=== PATIENT | male | born 1965 | race Caucasian/White ===

== ENCOUNTER → 2019-07-17 14:58 | Outpatient (CLI) | payer BC, SELFPAY ==
[2019-07-17 15:22] LABS: Add Manual Diff / Slide Review NO; Basophils Absolute Auto 100 /uL (0-100); Basophils Percent Auto 0.9 % (0-2); Eosinophils Absolute Auto 100 /uL (0-450); Eosinophils Percent Auto 2.3 % (2-4); Hemoglobin 14.3 g/dL (13.5-17.5); Lymphocytes Absolute Auto 1300 /uL (1100-4500); Lymphocytes Percent Auto 23.1 % (25-40); Mean Corpuscular Hemoglobin 31.4 PG (26-34); Mean Corpuscular Volume 89.7 fL (80-100); Monocytes Absolute Auto 400 /uL (0-900); Monocytes Percent Auto 7.5 % (3-14); Neutrophils Absolute Auto 3600 /uL (1500-7000); Neutrophils Percent Auto 66.2 % (50-75); Platelet Count 185 X10^3/uL (150-400); Red Blood Cell Count 4.57 X10^6/uL (4.5-5.9); Red Cell Distribution Width 13.2 % (11.6-14.8); White Blood Cell Count 5.5 X10^3/uL (4.5-11.0)
[2019-07-17 15:56] LABS: Alanine Aminotransferase 27 IU/L (<50); Albumin 4.5 g/dL (3.5-5.0); Albumin Globulin Ratio 2.3 (1.0-2.8); Alkaline Phosphatase 62 U/L (38-126); Aspartate Aminotransferase 30 IU/L (17-59); Bilirubin Total 0.8 mg/dL (0.2-1.3); Blood Urea Nitrogen 16 mg/dL (9-20); Calcium 8.9 mg/dL (8.4-10.2); Carbon Dioxide 26 mmol/L (22-32); Chloride 105 mmol/L (98-107); Cholesterol 196 mg/dL (140-199); Estimated Glomerular Filt Rate > 60.0 mL/min (>60); Glucose 92 mg/dL (70-100); HDL Cholesterol 40 mg/dL (40-60); HEMOLYSIS < 15 (0-50); LDL Cholesterol Calculated 119 mg/dL (<100); Sodium 138 mmol/L (137-145); Total Protein 6.5 g/dL (6.3-8.2); Triglycerides 187 mg/dL (35-150)
[2019-07-17 16:26] LABS: TSH w/ Reflex to FT4 2.02 uIU/mL (0.47-4.68)
== END ==
PROVIDERS: PCP Family Medicine; Visit Provider Family Medicine
DX: Z00.00 Encounter for general adult medical examination without abnormal findings (principal); I10 Essential (primary) hypertension; Z13.6 Encounter for screening for cardiovascular disorders
CPT/HCPCS: 36415; 80053; 80061; 84443; 85025

== ENCOUNTER → 2020-07-16 09:58 | Outpatient (CLI) | payer BC, SELFPAY ==
--- NOTE | 2020-07-16 | DI.MRI.S_ITS ---
PROCEDURE: MR SHOULDER LT WO CON INDICATIONS: Impingement syndrome of left shoulder TECHNIQUE: Noncontrast oblique coronal T2 fast spin echo with fat saturation, oblique sagittal T1 spin echo and T2 fast spin echo with fat saturation, axial T1 spin echo and T2 fast spin echo with fat saturation through the shoulder. COMPARISON: None. FINDINGS: Image quality: Excellent. Rotator cuff: Infraspinatus tendinopathy and low-grade articular surface fraying. There is also supraspinatus tendinopathy with low-grade articular and bursal surface fraying. Teres minor appears intact. Mild subscapularis tendinopathy. Prominent fatty infiltration of the teres minor with mild atrophy. There is mild fatty infiltration of the infraspinatus muscle. Bones and bursae: No bone marrow contusions or fractures. Moderate to severe hypertrophic acromioclavicular joint degeneration. Acromion demonstrates conventional anatomy, without an os acromiale. Mild subacromial-subdeltoid bursitis. Capsule and soft tissues: Labrum: Ill-defined fraying of the superior labrum.. Long head of the biceps tendon intact. Inferior glenohumeral ligament thickening and mild T2 hyperintensity in keeping with low-grade sprain, age indeterminate. The rotator interval appears normal, without fibrosis. Coracohumeral ligament intact. IMPRESSION: Infraspinatus and supraspinatus tendinopathy Low-grade articular surface fraying of the infraspinatus tendon. Low-grade articular and bursal surface fraying of the supraspinatus tendon. No full-thickness defect identified Prominent fatty infiltration and mild atrophy of the teres minor, although no specific lesion identified in the quadrilateral space. Mild subacromial-subdeltoid bursitis. Ill-defined fraying of the superior labrum, probably age-appropriate Age-indeterminate sprain of the inferior glenohumeral ligament Dictated by: Oliverio Landon M.D. on 07/18/2020 at 8:40 Approved by: Oliverio Landon M.D. on 07/18/2020 at 8:48
== END ==
PROVIDERS: PCP Family Medicine; Referring Provider Family Medicine; Visit Provider Orthopaedic Surgery
DX: M75.42 Impingement syndrome of left shoulder (principal); M75.52 Bursitis of left shoulder; S43.492A Other sprain of left shoulder joint, initial encounter
CPT/HCPCS: 73221

== ENCOUNTER → 2020-11-10 08:27 | Outpatient (CLI) | payer BC, SELFPAY ==
[2020-11-10] MEDS: COVID-19 VACC, Ad26(JANSSEN)/PF 0.5 ML IM (08:31)
== END ==
PROVIDERS: PCP Family Medicine; Visit Provider Internal Medicine
DX: Z23 Encounter for immunization (principal)
CPT/HCPCS: 0031A; 91303

== ENCOUNTER 2022-02-14 08:36 | Emergency (ER) | payer OTHER, MEDICAID, SELFPAY ==
[2022-02-14 08:52] VITALS: BP 140/82; PULSE 65; RESP 14; TEMP 36.6; O2SAT 99; BMI 31.3
--- NOTE | 2022-02-14 09:01 | ED.ALLEREA ---
HPI - Allergic Reaction General Chief complaint: Allergic Reaction Stated complaint: Bottom lip swollen- thinks bit by something Time Seen by Provider: 02/14/22 09:00 Source: patient Mode of arrival: Ambulatory History of Present Illness HPI narrative: 56-year-old male nonsmoker with history of hypertension presents with a chief complaint of swelling of his lower lip over the course of the morning. He denies any pain or injury nor significant sun exposure. He denies any obvious injury or insect bite. He denies any trouble swallowing or breathing. He states that he just started lisinopril a few days ago. He is had no chest pain, abdominal pain or diarrhea. He took Benadryl 25mg PO prior to his arrival. Related Data Previous Rx's Medication Instructions Recorded prednisone 10 mg tablet See Rx Instructions .Route 02/14/22 .COMPLEX #30 tabs Allergies Allergy/AdvReac Type Severity Reaction Status Date / Time lisinopril Allergy Verified 02/14/22 09:12 Review of Systems Review of Systems Narrative: GENERAL: Denies chills, fatigue, malaise, fever, sweats. HEENT: See HPI RESPIRATORY: See HPI CARDIOVASCULAR: Denies chest pain, palpitations, orthopnea, edema, GASTROINTESTINAL: Denies nausea, vomiting, abdominal pain, diarrhea, constipation, melena. : Denies dysuria, frequency, incontinence, hematuria, urinary retention. MUSCULOSKELETAL: denies weakness, joint pain, or bony pain SKIN: Denies rash, skin lesions, or other NEUROLOGIC: Denies weakness, headache, numbness, change in speech, confusion, seizures, incoordination. PSYCHIATRIC: No concerning psychosocial issues. 12 point review of systems is negative except for those stated above Patient History Surgical History History of tonsillectomy History of vasectomy Status post myringotomy with insertion of tube Family History Father Age: 80 Prostate cancer High cholesterol Essential hypertension, hypertension with unspecified goal Mother Age: 79 Healthy adult Sister Age: 57 Healthy adult Social History marital status: Smoking Status: Never smoker alcohol intake: current substance use type: does not use Smoking Status: Never smoker alcohol intake frequency: holidays/special occasions only Substance Use Type: does not use Exam Narrative Exam Narrative: GENERAL: [56] year old patient appears stated age. Well-developed patient, in mild distress. HEAD: Atraumatic. Normocephalic. EYES: Pupils equal round and reactive. Extraocular motions intact. No scleral icterus. No injection or drainage. ENT: Swollen lower lip without any other facial involvement or intra oral involvement Nose without bleeding, purulent drainage. Throat without erythema, tonsillar hypertrophy or exudate. Airway patent. NECK: Trachea midline. Non tender CARDIOVASCULAR: Regular rate and rhythm without murmurs, gallops, or rubs. RESPIRATORY: Clear to auscultation. Breath sounds equal bilaterally. No wheezes, rales, or rhonchi. GASTROINTESTINAL: Abdomen soft, non-tender, nondistended. EXTREMITIES: No edema or joint tenderness. BACK: Nontender without deformity or crepitance. No flank tenderness. NEURO: AOx3. SKIN: No rash or erythema of visible areas Initial Vital Signs Initial Vital Signs: Vital Signs Temperature 97.8 F 02/14/22 08:52 Pulse Rate 65 02/14/22 08:52 Respiratory Rate 14 02/14/22 08:52 Blood Pressure 140/82 02/14/22 08:52 Pulse Oximetry 99 02/14/22 08:52 Oxygen Delivery Method 02/14/22 08:52 Course Orders Ordered: Discontinued Medications Dexamethasone (Dexamethasone 10 Mg/Ml Vial) 10 mg IV NOW ONE Stop: 02/14/22 09:01 Last Admin: 02/14/22 09:12 Dose: 10 mg Documented By: TYSON Famotidine (Famotidine 20 Mg/2 Ml Vial) 20 mg IV NOW ONE Stop: 02/14/22 09:02 Last Admin: 02/14/22 09:12 Dose: 20 mg Documented By: TYSON Tranexamic Acid 1,000 mg/ (Sodium Chloride) 100 mls @ 200 mls/hr IV NOW ONE Stop: 02/14/22 09:29 Last Infusion: 02/14/22 10:08 Dose: 0 mls/hr Documented By: Admin: 02/14/22 09:12 Dose: 200 mls/hr Documented By: TYSON Vital Signs Vital signs: Vital Signs - 8 hr 02/14/22 10:30 02/14/22 10:59 Pulse Rate 60 56 L Respiratory Rate 18 Blood Pressure 133/76 Pulse Oximetry 98 98 Oxygen Delivery Method Room Air MDM - Allergic Reaction MDM Narrative Medical decision making narrative: Patient with lower lip swelling only in the absence of facial swelling, difficulty swallowing or breathing. Multiple diagnoses considered including injury, possible insect bite versus allergic reaction versus angioedema from CASIE inhibitor use. Given his history and physical it seems that angioedema is the most likely diagnosis. He has been observed for 2 hours and has no evolution of symptoms. He has isolated lip involvement and was given steroids, antihistamines and TXA. He has been instructed to not take anymore of his lisinopril, follow closely with his primary care provider and has been given extensive discussion about return precautions. Discharge Plan Departure Patient Disposition: Home Clinical Impression: Angio-edema Qualifiers: Encounter type: initial encounter Qualified Code(s): T78.3XXA - Angioneurotic edema, initial encounter Instructions: DI for Angioedema Activity Restrictions/Additional Instructions: *You have been diagnosed with [lower lip swelling, most likely a consequence of a relatively rare affect of the family blood pressure medications you are on.] *What to do: *Please STOP taking the Lisinopril and follow closely with Dr. Mulligan [x ] New medication prescriptions sent to your pharmacy: [[facility] ] [ ] New medication written as a paper prescription [ ] No new medications given *Please follow up with your primary care provider in 2-3 days, call for an appointment. Let them know you were seen in the Emergency Department and that we ask that you be seen in follow up. We will electronically transmit a record of today's note if your PCP is in our system *If you do not have a primary care provider please contact the [facility] Resource line at [phone]. They will ask some questions about your medical history and help get you set up with a doctor in the community. *Return to Emergency Department if you should have any new, worsening or concerning symptoms, such as [fever greater than 101 F, worsening swelling, trouble breathing, trouble swallowing shaking chills,persistent vomiting or other bothersome symptoms] Prescriptions: New prednisone 10 mg tablet See Rx Instructions .ROUTE .COMPLEX Qty: 30 0RF Rx Instructions: Day 1,2,3: 40mg PO Daily Day 4,5,6: 30mg PO Daily Day 7,8,9: 20mg PO Daily Day 10,11,12: 10mg PO Daily #30 Referrals: Enio Mulligan MD [Primary Care Provider] - Visit Report Forms: Patient Portal/API
[2022-02-14] MEDS: TRANEXAMIC ACID 1,000 MG in SODIUM CHLORIDE 0.9% 100 ML 200 MG IV (09:12)
[2022-02-14] MEDS: DEXAMETHASONE 10 MG/ML VIAL IV (09:12)
[2022-02-14] MEDS: FAMOTIDINE 20 MG/2 ML VIAL IV (09:12)
[2022-02-14 09:34] VITALS: PULSE 60; O2SAT 97
[2022-02-14 10:00] VITALS: PULSE 58; O2SAT 97
[2022-02-14 10:30] VITALS: PULSE 60; O2SAT 98
[2022-02-14 10:59] VITALS: BP 133/76; PULSE 56; RESP 18; O2SAT 98
== END 2022-02-14 11:00 | disposition home or self-care (01) ==
PROVIDERS: Emergency Provider Emergency Medicine; PCP Family Medicine
DX: T78.3XXA Angioneurotic edema, initial encounter (principal)
CPT/HCPCS: 96365; 96375; 99283; 99284; J1100

== ENCOUNTER → 2023-06-04 11:30 | Outpatient (CLI) | payer OTHER, SELFPAY ==
--- NOTE | 2023-06-04 | DI.RAD.S_ITS ---
PROCEDURE: XR CHEST 2V INDICATIONS: lung condition TECHNIQUE: 2 views of the chest were acquired. COMPARISON: None. FINDINGS: Surgical changes and devices: None. Lungs and pleura: Lungs are clear. No pleural effusions or pneumothorax. Mediastinum: Mediastinal contours are normal. Heart size is normal. Bones and chest wall: No suspicious bony abnormalities. Soft tissues appear unremarkable. IMPRESSION: No acute process. Dictated by: Samuel Andrew M.D. on 06/04/2023 at 15:11 Approved by: Samuel Andrew M.D. on 06/04/2023 at 15:12
== END ==
PROVIDERS: Referring Provider Chiropractor; Visit Provider Chiropractor
DX: J98.4 Other disorders of lung (principal)
CPT/HCPCS: 71046; 94060

== ENCOUNTER → 2023-08-21 08:54 | Outpatient (CLI) | payer OTHER, SELFPAY ==
--- NOTE | 2023-08-21 08:56 | DI.RAD.S_ITS ---
PROCEDURE: XR ANKLE LT MIN 3V INDICATIONS: left ankle injury TECHNIQUE: 3 views of the ankle were acquired. COMPARISON: None. FINDINGS: Bones: No fractures or dislocations. Ankle mortise is normally aligned. No suspicious bony lesions. Soft tissues: No tibiotalar joint effusion. Achilles tendon appears normal. IMPRESSION: No acute osseous abnormality. If pain persists with conservative management, consider repeat x-ray in 10-14 days or cross-sectional imaging. Dictated by: Homero Finn M.D. on 08/21/2023 at 11:37 Approved by: Homero Finn M.D. on 08/21/2023 at 11:37
== END ==
PROVIDERS: PCP Nurse Practitioner; Referring Provider Nurse Practitioner Family; Visit Provider Nurse Practitioner Family
DX: S96.912A Strain of unspecified muscle and tendon at ankle and foot level, left foot, initial encounter (principal); X58.XXXA Exposure to other specified factors, initial encounter
CPT/HCPCS: 73610

== ENCOUNTER → 2023-11-07 07:46 | Outpatient (CLI) | payer OTHER, SELFPAY ==
[2023-11-07 08:29] LABS: Influenza A - CEPHEID Flu A NEGATIVE (NEGATIVE); Influenza B - CEPHEID Flu B NEGATIVE (NEGATIVE); Respiratory Syncytial Virus Negative (Negative)
[2023-11-07 08:30] LABS: COVID-19 CEPHEID 4-PLEX PCR Negative (Negative)
== END ==
PROVIDERS: PCP Nurse Practitioner; Visit Provider Physician Assistant Surgical
DX: R05.9 Cough, unspecified (principal)
CPT/HCPCS: 0241U

== ENCOUNTER → 2023-11-07 07:49 | Outpatient (CLI) | payer OTHER, SELFPAY ==
--- NOTE | 2023-11-07 07:50 | DI.RAD.S_ITS ---
PROCEDURE: XR CHEST 2V INDICATIONS: Cough TECHNIQUE: 2 views of the chest were acquired. COMPARISON: [facility], CR, XR CHEST 2V, 06/04/2023, 11:40. FINDINGS: Surgical changes and devices: None. Lungs and pleura: Lungs are clear. No pleural effusions or pneumothorax. Mediastinum: Mediastinal contours are normal. Heart size is normal. Bones and chest wall: No suspicious bony abnormalities. Soft tissues appear unremarkable. IMPRESSION: No acute cardiopulmonary pathology. Dictated by: Adriel Vasquez M.D. on 11/07/2023 at 8:11 Approved by: Adriel aVsquez M.D. on 11/07/2023 at 8:11
== END ==
PROVIDERS: PCP Nurse Practitioner; Referring Provider Physician Assistant Surgical; Visit Provider Physician Assistant Surgical
DX: R05.9 Cough, unspecified (principal)
CPT/HCPCS: 0241U; 71046

== ENCOUNTER → 2024-07-03 06:56 | Outpatient (CLI) | payer OTHER, SELFPAY ==
[2024-07-03 08:14] LABS: Hemoglobin A1C% w Est Avg Glu 5.3 % (4.0-6.0)
[2024-07-03 08:20] LABS: Alanine Aminotransferase 68 IU/L (<50); Albumin 4.2 g/dL (3.5-5.0); Albumin Globulin Ratio 1.9 (1.0-2.8); Alkaline Phosphatase 66 U/L (38-126); Aspartate Aminotransferase 51 IU/L (17-59); BUN Creatinine Ratio 19.1 (6-22); Blood Urea Nitrogen 17 mg/dL (9-20); Calcium 9.2 mg/dL (8.4-10.2); Carbon Dioxide 31 mmol/L (22-32); Chloride 103 mmol/L (98-107); Cholesterol 155 mg/dL (140-199); Estimated Glomerular Filt Rate > 60 mL/min (>60); Globulin 2.2 g/dL (1.7-4.1); Glucose 93 mg/dL (70-100); HDL Cholesterol 53 mg/dL (40-60); HEMOLYSIS < 15 (0-50); LDL Cholesterol Calculated 71 mg/dL (<100); Potassium 4.5 mmol/L (3.4-5.1); Sodium 137 mmol/L (137-145); Total Protein 6.4 g/dL (6.3-8.2); Triglycerides 154 mg/dL (35-150)
== END ==
PROVIDERS: PCP Family Medicine; Referring Provider Family Medicine; Visit Provider Family Medicine
DX: Z13.1 Encounter for screening for diabetes mellitus (principal); I10 Essential (primary) hypertension; E78.5 Hyperlipidemia, unspecified
CPT/HCPCS: 36415; 80053; 80061; 83036

== ENCOUNTER → 2025-01-22 07:06 | Outpatient (CLI) | payer OTHER, SELFPAY ==
[2025-01-22 08:00] LABS: Alanine Aminotransferase 32 IU/L (<50); Albumin 4.4 g/dL (3.5-5.0); Albumin Globulin Ratio 2.4 (1.0-2.8); Alkaline Phosphatase 65 U/L (38-126); Aspartate Aminotransferase 32 IU/L (17-59); BUN Creatinine Ratio 19.5 (6-22); Bilirubin Total 1.3 mg/dL (0.2-1.3); Blood Urea Nitrogen 17 mg/dL (9-20); Carbon Dioxide 29 mmol/L (22-32); Chloride 102 mmol/L (98-107); Estimated Glomerular Filt Rate > 60 mL/min (>60); Globulin 1.8 g/dL (1.7-4.1); Glucose 95 mg/dL (70-99); HEMOLYSIS < 15 (0-50); Potassium 3.7 mmol/L (3.4-5.1); Sodium 138 mmol/L (137-145); Total Protein 6.2 g/dL (6.3-8.2)
[2025-01-22 08:29] LABS: Prostate Specific Antigen 1.27 ng/mL (0.10-4.00)
== END ==
PROVIDERS: PCP Family Medicine; Referring Provider Family Medicine; Visit Provider Family Medicine
DX: R79.89 Other specified abnormal findings of blood chemistry (principal); R97.20 Elevated prostate specific antigen [PSA]
CPT/HCPCS: 36415; 80053; 84153

== ENCOUNTER → 2025-01-31 09:36 | Outpatient (CLI) | payer OTHER, SELFPAY ==
--- NOTE | 2025-01-31 09:37 | DI.CT.S_ITS ---
PROCEDURE: CT LUNG LOW DOSE SCREENING INDICATIONS: fam hx of lung cancer and lung nodules TECHNIQUE: Noncontrast 2.0-2.5 mm thick sections acquired from the pulmonary apices to the posterior costophrenic angles. 7 mm thick axial MIP, and 5 mm coronal and sagittal reformats were then acquired. For radiation dose reduction, the following was used: automated exposure control, adjustment of mA and/or kV according to patient size. COMPARISON: [facility], CT, CT LOW DOSE LUNG CA SCREENING, 10/11/2020, 7:15. FINDINGS: Image quality: Diagnostic. Lower Neck: No enlarged lymph nodes. Thyroid: No thyroid nodules which require sonographic follow up, per consensus guidelines. Axillae: No enlarged lymph nodes. Chest Wall: Unremarkable. Bones: No suspicious osseous lesion. Lungs and Pleura: No pneumothorax or pleural effusions. No consolidation or suspicious nodules. Tiny area of pleural thickening or fissural nodules, unchanged. These most likely represent intrapulmonary lymph nodes. Heart: Heart size is normal. No pericardial effusion. Thoracic Vessels: The aorta and pulmonary arteries demonstrate normal size. Mediastinum and Carmen: No enlarged lymph nodes. Esophagus: No wall thickening. No hiatal hernia. Upper Abdomen: Visualized upper abdomen solid organs and bowel loops appear normal. IMPRESSION: No suspicious pulmonary nodules. LUNG-RADS 2; continued annual screening, if eligible. Clinically Significant Non-pulmonary Findings: None. Dictated by: Flaco Mcdonnell M.D. on 02/09/2025 at 11:46 Approved by: Flaco Mcdonnell M.D. on 02/09/2025 at 11:51
== END ==
PROVIDERS: PCP Family Medicine; Referring Provider Family Medicine; Visit Provider Family Medicine
DX: D49.1 Neoplasm of unspecified behavior of respiratory system (principal); R91.1 Solitary pulmonary nodule; Z80.1 Family history of malignant neoplasm of trachea, bronchus and lung
CPT/HCPCS: 71271

== ENCOUNTER → 2025-02-04 11:04 | Outpatient (CLI) | payer OTHER, SELFPAY | PROVIDERS: PCP Family Medicine; Referring Provider Nurse Practitioner Family; Visit Provider Nurse Practitioner Family | DX: J45.998 Other asthma (principal) | CPT/HCPCS: 94060; 94726; 94729 ==